=== PATIENT | female | born 1975 | race Hispanic/Latino ===

== ENCOUNTER 2020-11-19 10:52 | Emergency (ER) | payer OTHER ==
[~2020-11-19] VITALS: Ht 149.9 cm; Wt 64.9 kg
[2020-11-19] MEDS ORDERED: DEXAMETHASONE SOD PHOS INJ 4 MG/ML VIAL IM ONE (12:00)
[2020-11-19] MEDS ORDERED: PREDNISONE20 MG PO (12:00)
[2020-11-19] MEDS ORDERED: FLONASE ALLERG9.9 ML INH (12:00)
[2020-11-19] MEDS ORDERED: DEXAMETHASONE SOD PHOS INJ 4 MG/ML VIAL ONE (12:11)
== END 2020-11-19 12:25 | disposition home or self-care (01) ==
LOC: FSED 11:00
DX: J30.9 Allergic rhinitis, unspecified (principal); R60.9 Edema, unspecified
CPT/HCPCS: 99282; J1100